=== PATIENT | female | born 1940 | race Caucasian/White ===

== ENCOUNTER 2016-03-07 13:43 | Emergency (ER) | payer OTHER ==
[~2016-03-07] VITALS: Ht 157.5 cm; Wt 86.4 kg
[~2016-03-07 13:43] MED LIST: ALBUTEROL SULF8.5 GM IH; ALBUTEROL17 GM IH; ALTOPREV60 MG PO; ASPIR 8181 M1 PO; ASPIRIN81 M1 PO; CALCIUM 600 +1 EAC1 PO; CALCIUM CITRAT1 EAC1 PO; CLONAZEPAM0.5 MG PO; D3-5050000 UNIT PO; FISH OIL 1,2001 EAC4 PO; FLOVENT 11120 INHALA IH; LOSARTAN POTASS50 MG PO; METFORMIN HCL500 MG PO; MONTELUKAST SOD10 MG PO; MULTIVITAMIN1 EAC1 PO; OMEPRAZOLE20 MG PO; SIMVASTATIN20 MG PO; ZESTRIL,PRINIVI10 MG PO
[2016-03-07] MEDS ORDERED: MOBIC7.5 MG PO (16:43)
[2016-03-07 17:00] VITALS: BP 144/57
== END 2016-03-07 17:01 | disposition home or self-care (01) ==
LOC: EME 13:43
DX: S89.92XA Unspecified injury of left lower leg, initial encounter (principal); M25.462 Effusion, left knee; X50.3XXA Overexertion from repetitive movements, initial encounter; Y93.01 Activity, walking, marching and hiking; E11.9 Type 2 diabetes mellitus without complications; I10 Essential (primary) hypertension; Z79.82 Long term (current) use of aspirin; Z79.4 Long term (current) use of insulin
CPT/HCPCS: 73564; 99281; 99283